=== PATIENT | female | born 1995 | race American Indian/Alaskan Native ===

== ENCOUNTER 2016-07-25 16:30 | Emergency (ER) | payer SELFPAY ==
[2016-07-25 18:30] LABS: Basophils % (Auto) 0.4 % (0.0-1.8); Eosinophils % (Auto) 2.2 % (0.0-4.3); Hematocrit 37.8 % (30.3-42.9); Mean Corpuscular HGB Conc 32 % (30-34); Mean Corpuscular Hemoglobin 28 pg (28-32); Mean Corpuscular Volume 88 fl (79-97); Platelet Count 204 K/mm3 (140-440); Red Cell Distribution Width 12.7 % (13.2-15.2)
[2016-07-25 18:48] LABS: Alanine Aminotransferase 10 units/L (7-56); Albumin 3.9 g/dL (3.9-5); Albumin/Globulin Ratio 1.3 %; Alkaline Phosphatase 59 units/L (35-129); Anion Gap 16 mmol/L; Bilirubin,Total 0.2 mg/dL (0.1-1.2); Blood Urea Nitrogen 9 mg/dL (7-17); Calcium 9.4 mg/dL (8.4-10.2); Carbon Dioxide 24 mmol/L (22-30); Chloride 99.9 mmol/L (98-107); Glucose 75 mg/dL (65-100); Lipase 24 units/L (13-60); Potassium 3.8 mmol/L (3.6-5.0); Sodium 136 mmol/L (137-145); Total Protein 6.9 g/dL (6.3-8.2)
--- NOTE | 2016-07-25 20:55 | Ultrasound Report ---
FINAL REPORT EXAM: US OB TRANSVAGINAL HISTORY: pain TECHNIQUE: Ultrasound obstetrical transvaginal PRIORS: None. FINDINGS: Gestational sac is present within the uterus There is pole identified with crown-rump length of 9.9 centimeters corresponding to estimated gestational age of 7 weeks 0 days with estimated date of delivery March 13, 2017 cardiac activity is present with heart rate of 126 beats per minute The right ovary is 3.6 x 2.5 x 2.5 centimeters. Left ovary is 2.8 x 1.6 x 1.7 centimeters. Noted is a 1.8 centimeter right ovarian cyst IMPRESSION: Single live intrauterine gestation estimated at 7 weeks 0 days
--- NOTE | 2016-07-25 20:59 | Ultrasound Report ---
FINAL REPORT EXAM: US OB \T\lt; = 14 WEEKS FETUS HISTORY: pain TECHNIQUE: Ultrasound obstetrical transabdominal PRIORS: None. FINDINGS: Gestational sac is present within the uterus. This is better seen on today's transvaginal exam. No additional findings. IMPRESSION: Intrauterine gestation. Please see report of today's transvaginal exam for further findings.
--- NOTE | 2016-07-25 23:45 | Emergency Department Report ---
ED General Adult HPI - General Chief complaint: Abdominal Pain Stated complaint: ABD PAIN/6WKS Time Seen by Provider: 07/25/16 23:37 Source: patient, RN notes reviewed Mode of arrival: Ambulatory Limitations: No Limitations - History of Present Illness Initial comments: This is a 20-year-old female. She is previously unknown to me. She is 2, para 0. Last menstrual period is June 05. Patient lives in [facility]. Does not have an ENGINE SERVICE REPAIRER doctor. Presents to the ER with suprapubic abdominal cramping. This has been present since yesterday. No nausea, vomiting or diarrhea. No right lower quadrant pain. No irritative or obstructive urinary symptoms. Pain has no exacerbating or relieving factors. It does not radiate anywhere. There is no vaginal discharge. She is defecating normally. -: Gradual Location: abdomen Quality: aching Consistency: intermittent Improves with: none Worsens with: none Associated Symptoms: denies other symptoms - Related Data Previous Rx's Medication Instructions Recorded Last Taken Type Doxylamine/Pyridoxine HCl 1 each PO QHS PRN #30 tablet. 07/26/16 Unknown Rx [Ramin [place] 10-10 mg Tablet] Vit W-Ca,Fe,FA(<1 mg) 1 each PO QDAY #30 tablet 07/26/16 Unknown Rx [ Vitamins] Allergies Allergy/AdvReac Type Severity Reaction Status Date / Time No Known Allergies Allergy Unverified 07/25/16 16:32 ED Review of Systems ROS: Stated complaint: ABD PAIN/6WKS Other details as noted in HPI Constitutional: denies: fever Eyes: denies: vision change ENT: denies: epistaxis Respiratory: denies: cough Cardiovascular: denies: chest pain Gastrointestinal: denies: abdominal pain Genitourinary: as per HPI. denies: urgency, abnormal menses Musculoskeletal: denies: back pain Skin: denies: lesions Neurological: as per HPI. denies: weakness Psychiatric: as per HPI ED Past Medical Hx - Past Medical History Previous Medical History?: No - Surgical History Past Surgical History?: No - Social History Smoking Status: Never Smoker Substance Use Type: None - Medications Home Medications: Home Medications Medication Instructions Recorded Confirmed Last Taken Type Doxylamine/Pyridoxine HCl 1 each PO QHS PRN #30 tablet. 07/26/16 Unknown Rx [Ramin [place] 10-10 mg Tablet] Vit W-Ca,Fe,FA(<1 mg) 1 each PO QDAY #30 tablet 07/26/16 Unknown Rx [ Vitamins] ED Physical Exam - General Limitations: No Limitations General appearance: alert, in no apparent distress - Head Head exam: Present: atraumatic, normocephalic - Eye Eye exam: Present: normal appearance, EOMI. Absent: nystagmus - ENT ENT exam: Present: normal exam, normal orophraynx, mucous membranes moist, normal external ear exam - Neck Neck exam: Present: normal inspection, full ROM. Absent: tenderness, meningismus - Respiratory Respiratory exam: Present: normal lung sounds bilaterally. Absent: respiratory distress, wheezes, rales, rhonchi, stridor, decreased breath sounds - Cardiovascular Cardiovascular Exam: Present: regular rate, normal rhythm, normal heart sounds. Absent: bradycardia, tachycardia, irregular rhythm, systolic murmur, diastolic murmur, rubs, gallop - GI/Abdominal GI/Abdominal exam: Present: soft, normal bowel sounds. Absent: distended, tenderness, guarding, rebound, rigid, pulsatile mass - External exam: Present: normal external exam Speculum exam: Present: normal speculum exam. Absent: vaginal bleeding, foreign body Bi-manual exam: Present: normal bi-manual exam, other (escorted by ER polysomnography technician Maddy Li). Absent: cervical motion tendernes, adnexal tenderness, adnexal mass - Extremities Exam Extremities exam: Present: normal inspection, full ROM, normal capillary refill. Absent: tenderness, pedal edema, joint swelling, calf tenderness - Back Exam Back exam: Present: normal inspection, full ROM. Absent: tenderness, CVA tenderness (R), CVA tenderness (L), muscle spasm, paraspinal tenderness, vertebral tenderness - Neurological Exam Neurological exam: Present: alert, oriented X3, normal gait, other (Extraocular movements intact. Tongue midline. No facial droop. Facial sensation intact to light touch in the V1, V2, V3 distribution bilaterally. 5 and 5 strength in 4 extremities.. Sensation is intact to light touch in 4 extremities.). Absent : motor sensory deficit - Psychiatric Psychiatric exam: Present: normal affect, normal mood - Skin Skin exam: Present: warm, dry, intact, normal color. Absent: rash ED Course Vital Signs 07/25/16 07/25/16 07/26/16 16:32 23:33 01:03 Temperature 99.0 F 97.7 F Pulse Rate 80 82 96 H Respiratory 20 16 14 Rate Blood Pressure 128/74 Blood Pressure 131/71 118/50 [Right] O2 Sat by Pulse 100 98 100 Oximetry - Reevaluation(s) Reevaluation #1: 07/26/16 00:03 Differential diagnosis: , ovarian cyst, constipation, urinary tract infection, subchorionic hemorrhage Assessment and plan: 20-year-old female who is with reported abdominal cramping. She is afebrile with reassuring vital signs, with no abdominal tenderness, rebound or guarding. Her gynecologic exam is equally benign, there is no right lower quadrant tenderness, rebound or guarding. There was no adnexal tenderness either. Transvaginal ultrasound demonstrates an intrauterine gestation at 7 weeks 0 days without any bleeding. Rh+, urinalysis pending. Reevaluation #2: 07/26/16 00:34 Urinalysis not consistent with urinary tract infection. Patient will be discharged as planned. ED Medical Decision Making - Lab Data Result diagrams: 07/25/16 18:04 07/25/16 18:04 Vital Signs 07/25/16 07/25/16 16:32 23:33 Temperature 99.0 F 97.7 F Pulse Rate 80 82 Respiratory 20 16 Rate Blood Pressure 128/74 Blood Pressure 131/71 [Right] O2 Sat by Pulse 100 98 Oximetry Lab Results 07/25/16 07/25/16 07/25/16 Range/Units 18:04 18:04 18:04 WBC 8.0 (4.5-11.0) K/mm3 RBC 4.30 (3.65-5.03) M/mm3 Hgb 12.0 (10.1-14.3) gm/dl Hct 37.8 (30.3-42.9) % MCV 88 (79-97) fl MCH 28 (28-32) pg MCHC 32 (30-34) % RDW 12.7 L (13.2-15.2) % Plt Count 204 (140-440) K/mm3 Lymph % (Auto) 26.1 (13.4-35.0) % Pine % (Auto) 11.6 H (0.0-7.3) % Eos % (Auto) 2.2 (0.0-4.3) % Baso % (Auto) 0.4 (0.0-1.8) % Lymph # 2.1 (1.2-5.4) K/mm3 Pine # 0.9 H (0.0-0.8) K/mm3 Eos # 0.2 (0.0-0.4) K/mm3 Baso # 0.0 (0.0-0.1) K/mm3 Seg Neutrophils % 59.7 (40.0-70.0) % Seg Neutrophils # 4.8 (1.8-7.7) K/mm3 Sodium 136 L (137-145) mmol/L Potassium 3.8 (3.6-5.0) mmol/L Chloride 99.9 (98-107) mmol/L Carbon Dioxide 24 (22-30) mmol/L Anion Gap 16 mmol/L BUN 9 (7-17) mg/dL Creatinine 0.6 L (0.7-1.2) mg/dL Estimated GFR > 60 ml/min BUN/Creatinine Ratio 15.00 % Glucose 75 (65-100) mg/dL Calcium 9.4 (8.4-10.2) mg/dL Total Bilirubin 0.2 (0.1-1.2) mg/dL AST 16 (5-40) units/L ALT 10 (7-56) units/L Alkaline Phosphatase 59 (35-129) units/L Total Protein 6.9 (6.3-8.2) g/dL Albumin 3.9 (3.9-5) g/dL Albumin/Globulin Ratio 1.3 % Lipase 24 (13-60) units/L HCG, Quant 67025 H (0-4) mIU/mL Blood Type 07/25/16 Range/Units 21:00 WBC (4.5-11.0) K/mm3 RBC (3.65-5.03) M/mm3 Hgb (10.1-14.3) gm/dl Hct (30.3-42.9) % MCV (79-97) fl MCH (28-32) pg MCHC (30-34) % RDW (13.2-15.2) % Plt Count (140-440) K/mm3 Lymph % (Auto) (13.4-35.0) % Pine % (Auto) (0.0-7.3) % Eos % (Auto) (0.0-4.3) % Baso % (Auto) (0.0-1.8) % Lymph # (1.2-5.4) K/mm3 Pine # (0.0-0.8) K/mm3 Eos # (0.0-0.4) K/mm3 Baso # (0.0-0.1) K/mm3 Seg Neutrophils % (40.0-70.0) % Seg Neutrophils # (1.8-7.7) K/mm3 Sodium (137-145) mmol/L Potassium (3.6-5.0) mmol/L Chloride (98-107) mmol/L Carbon Dioxide (22-30) mmol/L Anion Gap mmol/L BUN (7-17) mg/dL Creatinine (0.7-1.2) mg/dL Estimated GFR ml/min BUN/Creatinine Ratio % Glucose (65-100) mg/dL Calcium (8.4-10.2) mg/dL Total Bilirubin (0.1-1.2) mg/dL AST (5-40) units/L ALT (7-56) units/L Alkaline Phosphatase (35-129) units/L Total Protein (6.3-8.2) g/dL Albumin (3.9-5) g/dL Albumin/Globulin Ratio % Lipase (13-60) units/L HCG, Quant (0-4) mIU/mL Blood Type O POSITIVE - Radiology Data Radiology results: report reviewed, image reviewed Obstetrics ultrasound demonstrates intrauterine gestation at 7 weeks and 0 days. heartbeat 126 bpm. Critical care attestation.: If time is entered above; I have spent that time in minutes in the direct care of this critically ill patient, excluding procedure time. ED Disposition Clinical Impression: Disposition: DISCHARGED TO HOME OR SELFCARE Is pt being admited?: No Does the pt Need Aspirin: No Condition: Stable Additional Instructions: Take the nausea medication, vitamins as directed. Follow up with an OB /DIRECT MARKETING MANAGER doctor as soon as possible. It is very important to establish outpatient care to have a healthy and say . Take Tylenol every 4-6 hours as needed for pain. eat plenty of fiber, fruits, vegetables. Return to the ER right away with new pain, worsened pain, migration of pain, fevers or chills, intractable nausea or vomiting, inability to tolerate liquid feeds. Prescriptions: Doxylamine/Pyridoxine HCl [Ramin [place] 10-10 mg Tablet] 1 each PO QHS PRN #30 tablet. PRN Reason: Nausea Vit W-Ca,Fe,FA(<1 mg) [ Vitamins] 1 each PO QDAY #30 tablet Referrals: PRIMARY CAREMD [Primary Care Provider] - 3-5 Days [facility] [Provider Group] - 3-5 Days [facility] [Provider Group] - 3-5 Days
[2016-07-26] MEDS ORDERED: TYLENOL PO ONE (00:03)
[2016-07-26 00:17] LABS: Bilirubin,Urine NEG (Negative); Blood,Urine NEG (Negative); Ketones,Urine NEG (Negative); Leukocyte Esterase,Urine SM (Negative); Mucus,Urine 1+ /HPF; Nitrite,Urine NEG (Negative); Protein,Urine <15 mg/dL mg/dL (Negative); RBC,Urine < 1.0 /HPF (0.0-6.0); Urobilinogen,Urine < 2.0 mg/dL (<2.0)
[2016-07-26 01:20] VITALS: BP 118/50
== END 2016-07-26 01:03 | disposition home or self-care (01) ==
LOC: ED 16:30
DX: O26.891 Other specified pregnancy related conditions, first trimester (principal); R10.9 Unspecified abdominal pain; Z3A.01 Less than 8 weeks gestation of pregnancy
CPT/HCPCS: 36415; 76801; 76817; 80053; 81001; 83690; 84702; 85025; 86900; 86901; 99284